=== PATIENT | female | born 1985 | race Two or more races ===

== ENCOUNTER → 2025-03-06 | Outpatient (CLI) | payer MEDICAID, SELFPAY ==
--- NOTE | 2025-03-06 09:30 | XR_ITS ---
Examination: Screening digital mammography, bilateral Computer aided detection 3-D breast Tomosynthesis, bilateral Date and time of exam: March 06, 2025, 0923 hours, no priors Indication: Screening Technique: Nonmagnified MLO, CC views of the breasts to been obtained, reconstructed from 3-D Tomosynthesis images. R2 computer aided detection program utilized for evaluation of suspicious masses and/or abnormal calcifications. 3-D Tomosynthesis images obtained. Findings: The breasts are heterogeneously dense, which may obscure small masses Benign calcifications. 6 mm focal asymmetry lower left breast MLO view, 4.2 cm from the nipple IMPRESSION: BI-RADS Category 0: Incomplete: Need additional imaging evaluation Recommend follow-up spot tomographic views, MLO, and CC outer left breast as well as left breast sonography to complete the work-up to assess the 6 mm focal asymmetry lower left breast MLO view, 4.2 cm from the nipple
== END | disposition home or self-care (01) ==
LOC: CDIM 08:43
PROVIDERS: Referring Provider Nurse Practitioner Family; Visit Provider Nurse Practitioner Family
DX: Z12.31 Encounter for screening mammogram for malignant neoplasm of breast (principal); R92.8 Other abnormal and inconclusive findings on diagnostic imaging of breast; N64.89 Other specified disorders of breast
CPT/HCPCS: 77063; 77067

== ENCOUNTER 2025-03-27 15:41 | Emergency (ER) | payer MEDICAID, SELFPAY ==
[2025-03-27 15:42] VITALS: BMI 34.5
[2025-03-27 15:52] VITALS: BP 127/80; PULSE 83; RESP 20; TEMP 37.1; O2SAT 98
--- NOTE | 2025-03-27 17:02 | EDNOTE_ITS ---
Upper Extremity Injury RME/HPI General Chief Complaint: Extremity Injury, Upper Stated Complaint: L ARM PAIN SINCE LAST NIGHT RADIATING TO PACK Time Seen by Provider: 03/27/25 15:54 Arrival date/time: 03/27/25 15:41 RME / HPI RME / HPI narrative: 39-year-old patient presents emergency department with complaint of left arm pain radiating to upper back and neck that started last night. Patient also states that she has a history of anxiety. 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 She denies trauma to her neck or upper back. She does attest to numbness and tingling to the left hand. She denies chest pain she denies shortness of breath with activity. Patient states that she is currently on Banophen and aspirin. Related Data Previous Rx's ?Medication ?Instructions ?Recorded cephalexin 500 mg tablet 500 mg PO BID #10 tabs 08/03 omeprazole 40 mg capsule,delayed 40 mg PO QDAY #30 cap s 02/04/24 release cyclobenzaprine 10 mg tablet 10 mg PO HS 10 days #10 t abs 03/27/25 ibuprofen 600 mg tablet 600 mg PO QID PRN pain #60 t abs 03/27/25 Allergies Allergy/AdvReac Type Severity Reaction Status Date / Time No Known Allergies Allergy Verified 03/27/25 15:45 Review of Systems Review of Systems Systems Reviewed: All systems reviewed, normal except as documented Constitutional Constitutional: Reports system reviewed and no additional complaints, except as documented Cardiovascular Cardiovascular: Reports system reviewed and no additional complaints, except as documented Respiratory Respiratory: Reports system reviewed and no additional complaints, except as documented Musculoskeletal Musculoskeletal: Reports system reviewed and no additional complaints, except as documented ED Exam General General appearance: Present alert and in no apparent distress Head Head exam: Present atraumatic and normocephalic ENT ENT exam: Present normal exam and normal oropharynx Neck Neck exam: Present normal inspection and full ROM Respiratory Respiratory exam: Present normal lung sounds bilaterally and respiratory distress Cardiovascular Cardiovascular exam: Present regular rate and normal rhythm Extremities Exam Extremities exam: Present normal inspection and full ROM Expanded Upper Extremity Exam Shoulder exam: Present normal inspection and full ROM Back Exam Back exam: Present normal inspection and full ROM Psychiatric Psychiatric exam: Present normal affect and normal mood Course Quality Measures none Orders Category Date Time Status ALPRazoLAM [Xanax] Med 03/27/25 17:02 Once 1 mg PO X1 ONE Ketorolac Inj [Toradol Inj] Med 03/27/25 17:02 Once 60 mg IM X1 ONE Vital Signs Vital signs: Vital Signs Temperature 98.8 F 03/27/25 15:52 Pulse Rate 83 03/27/25 15:52 Respiratory Rate 20 03/27/25 15:52 Blood Pressure 127/80 03/27/25 15:52 Pulse Oximetry (%) 98 03/27/25 15:52 Oxygen Delivery Method Room Air 03/27/25 15:52 Extremity Injury MDM Narrative MDM Narrative:: 39-year-old patient presents emergency department with complaint of back pain neck pain and left arm pain radiating to her fingers. 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 Patient also attest to a history of anxiety. Given patient's complaint about possibility of cardiac issues at this visit patient will be given Toradol injection in the emergency department and DC'd home with Flexeril to be taken at bedtime. Patient also encouraged to take ibuprofen for pain control. Based on HPI no imaging studies is warranted at this time. Patient is in agreement of plan and is stable to DC home. Patient data External records reviewed:: None Clinical information provided by:: patient Social determinants that could affect healthcare access:: none Patient has the following chronic illnesses:: anxiety How is presenting disease/condition affected by chronic disease/condition?: exacerbated by Evaluation data The following diagnostics were reviewed and interpreted by me:: other (specify) (na) Lab and/or radiology exams considered but not ordered:: na Interpretation Summary: na Medications / Prescriptions Medications or Prescriptions considered but not ordered:: both considered and ordered Medication administrations:: per above Consultations Consultation(s) initiated? (list below): No Diagnosis Upper Extremity Injury Differential Diagnosis: sprain and strain of wrist, fracture of wrist, finger sprain and fracture of humerus Most likely diagnosis given after review of the tests above:: trapezius strain, anxiety Admission Indicated Admission indicated?: not indicated Admission Request Was there a request for admission?: No Disposition Plan Disposition Plan: Discharge Discharge Attestation Discharge Attestation: The patient and all family members were given an opportunity to ask questions and understood the discharge instructions. Discharge instructions specifically effects, indications for sooner follow up or return to the emergency department, and the expected course of current diagnosis. Patient condition: Stable Discharge Plan Plan Patient Disposition: HOME (Self Care) Prescriptions/Referrals Prescriptions/Med Rec: New ibuprofen 600 mg tablet 600 mg PO QID PRN (Reason: pain) Qty: 60 0RF cyclobenzaprine 10 mg tablet 10 mg PO HS 10 Days Qty: 10 0RF No Action cephalexin 500 mg tablet 500 mg PO BID Qty: 10 0RF omeprazole 40 mg capsule,delayed release(DR/EC) 40 mg PO QDAY Qty: 30 0RF Problem List Clinical Impression: Anxiety, Trapezius strain, Paresthesia, Stress reaction Patient/Caregiver Discharge Instructions Education Materials: Your Body's Response to Anxiety, Treating?Strains and Sprains, Understanding Anxiety Disorders, ED Anxiety Reaction, ED Paraesthesias Print Language: [place]itanian Stand Alone Forms: Luz Maria Award Info., Patient Portal Info Letter
[2025-03-27] MEDS: KETOROLAC INJ 60 MG/2 ML VIAL IM (17:33)
== END 2025-03-27 17:58 | disposition home or self-care (01) ==
LOC: SERX 17:46
PROVIDERS: Emergency Provider Emergency Medicine
DX: S29.012A Strain of muscle and tendon of back wall of thorax, initial encounter (principal); S49.90XA Unspecified injury of shoulder and upper arm, unspecified arm, initial encounter; F41.1 Generalized anxiety disorder; X50.0XXA Overexertion from strenuous movement or load, initial encounter
CPT/HCPCS: 96372; 99282; J1885; A9270